=== PATIENT | female | born 1990 | race African-American/Black ===

== ENCOUNTER 2019-11-03 17:28 | Emergency (ER) | payer SELFPAY ==
[2019-11-03] MEDS ORDERED: Metoclopramide HCl 10 MG/2 ML VIAL ONE (18:32)
[2019-11-03] MEDS ORDERED: diphenhydrAMINE 50 MG/ML VIAL ONE (18:32)
[2019-11-03] MEDS ORDERED: Acetaminophen 500 MG TAB ONE (18:32)
[2019-11-03] MEDS ORDERED: Ketorolac Tromethamine 30 MG/ML VIAL ONE (19:36)
== END 2019-11-03 20:13 | disposition home or self-care (01) ==
LOC: ERS 17:28
DX: R51 Headache (principal); Z87.891 Personal history of nicotine dependence
CPT/HCPCS: 96365; 96375; J1200; J1885; J2765

== ENCOUNTER 2021-11-28 14:36 | Inpatient (IN) | payer SELFPAY ==
[2021-11-28] MEDS ORDERED: Neomycin-Polymyxin 1 ML AMP ONE ×2 (16:21→17:54)
[2021-11-28] MEDS ORDERED: Bacitracin Zinc Ointment 30 gm TUBE ONE (16:21)
[2021-11-28] MEDS ORDERED: Bupivacaine 0.25% HCL 30 ML VIAL ONE (16:21)
[2021-11-28] MEDS ORDERED: Lidocaine 1% w/Epinephrine 1:100K 20 ML VIAL ONE (16:21)
[2021-11-28] MEDS ORDERED: CEFAZOLIN 2 GM VIAL ONE (16:29)
[2021-11-28] MEDS ORDERED: Sodium Chloride 0.9% 100 ML ONE (16:29)
[2021-11-28] MEDS ORDERED: fentaNYL Citrate/PF 100 MCG/2 ML SYRINGE ONE ×2 (17:02→18:12)
[2021-11-28] MEDS ORDERED: Midazolam HCl 2 mg/2 ml Vial ONE (17:02)
[2021-11-28] MEDS ORDERED: Famotidine/PF 20 mg/2ml Vial ONE (17:03)
[2021-11-28] MEDS ORDERED: HYDROmorphone 0.5 MG/0.5 ML SYRINGE ONE (17:03)
[2021-11-28] MEDS ORDERED: Dexamethasone 20 MG/5 ML VIAL ONE (17:19)
[2021-11-28] MEDS ORDERED: Lidocaine 1% PF 5 ML VIAL ONE (17:19)
[2021-11-28] MEDS ORDERED: Ondansetron PF 4 MG/2 ML Vial ONE (17:19)
[2021-11-28] MEDS ORDERED: PROPOFOL 200 MG/20 ML VIAL ONE (17:19)
[2021-11-28] MEDS ORDERED: Promethazine HCl 25 MG/ML VIAL IM PRN ×2 (17:28→19:06)
[2021-11-28] MEDS ORDERED: Ondansetron PF 4 MG/2 ML Vial IVP PRN (17:28)
[2021-11-28] MEDS ORDERED: traMADol HCl 50 MG TAB PO PRN (17:28)
[2021-11-28] MEDS ORDERED: Fentanyl 100 MCG/2 ML VIAL SLOW IVP PRN (17:28)
[2021-11-28] MEDS ORDERED: Milk Of Magnesia 30 ML UDCUP PO PRN (17:28)
[2021-11-28] MEDS ORDERED: Acetaminophen 325 MG TAB PO PRN (17:28)
[2021-11-28] MEDS ORDERED: Morphine 4 MG/ML VIAL SLOW IVP PRN (17:28)
[2021-11-28] MEDS ORDERED: Communication Order-Pharmacy FS SCH (17:30)
[2021-11-28] MEDS ORDERED: TETANUS AND DIPHTHERIA TOX/PF 0.5 ML DISP.SYRIN IM SCH (17:30)
[2021-11-28] MEDS ORDERED: Meperidine HCl/PF 25 MG/ML VIAL IM PRN (17:32)
[2021-11-28] MEDS ORDERED: Meperidine HCl/PF 25 MG/ML VIAL SLOW IVP PRN (19:06)
[2021-11-28] MEDS ORDERED: Promethazine HCl 25 MG/ML VIAL IVPB PRN (19:06)
[2021-11-28] MEDS ORDERED: HYDROmorphone 2 MG/ML VIAL SLOW IVP PRN (19:06)
[2021-11-28] MEDS ORDERED: Morphine Sulfate 2 MG/ML SYRINGE SLOW IVP PRN (19:06)
[2021-11-28] MEDS ORDERED: Ketorolac Tromethamine 30 MG/ML VIAL IVP PRN (19:06)
[2021-11-28] MEDS ORDERED: Ondansetron HCl/PF 4 MG/2 ML Vial IVP PRN (19:06)
[2021-11-28] MEDS: Sodium Chloride 0.9% 1,000 ML IV SCH (20:20)
[2021-11-28 20:53] VITALS: BMI 30.9
[2021-11-28] MEDS: Aspirin 81 mg Enteric Coated Tablet PO SCH (21:17)
[2021-11-28] MEDS: Ketorolac Tromethamine 30 MG/ML VIAL IVP PRN (21:17)
[2021-11-28] MEDS: VANCOMYCIN 1.25 GM/250 ML BAG 1.25 GM in Premix Bag 1 BAG IVPB SCH (21:20)
[2021-11-28] MEDS: HYDROcodone/Acetaminophen 5/325 mg Tablet PO PRN (23:54)
[2021-11-29] MEDS: Sodium Chloride 0.9% 1,000 ML IV SCH ×2 (03:30→13:49)
[2021-11-29 05:46] LABS: Anion Gap 13 mmol/L (10-20); BUN (Urea Nitrogen) 12 mg/dL (7.0-18.7); Calc. Creatinine Clearance 109 mL/min (70-130); Calcium 9.6 mg/dL (7.8-10.44); Carbon Dioxide 25 mmol/L (22-29); Chloride 103 mmol/L (98-107); Estimated GFR 84; Glucose 180 mg/dL (70-105); Potassium 4.5 mmol/L (3.5-5.1); Sodium 136 mmol/L (136-145)
[2021-11-29] MEDS: HYDROcodone/Acetaminophen 5/325 mg Tablet PO PRN ×2 (08:39→17:15)
[2021-11-29] MEDS: Aspirin 81 mg Enteric Coated Tablet PO SCH (08:39)
[2021-11-29] MEDS: VANCOMYCIN 1.25 GM/250 ML BAG 1.25 GM in Premix Bag 1 BAG IVPB SCH (08:43)
[2021-11-29] MEDS: Ketorolac Tromethamine 30 MG/ML VIAL IVP PRN (08:45)
[2021-11-29 19:50] VITALS: BP 129/79; TEMP 98.4
== END 2021-11-29 19:26 | disposition home or self-care (01) | DRG 514 ==
LOC: SDC 14:36 → SURG A 17:31 → OBSVTOIN 11-29 16:54
PROVIDERS: ADMIT Orthopaedic Surgery Hand Surgery; ATTEND Orthopaedic Surgery Hand Surgery
PROC: 0PSV04Z Reposition Left Finger Phalanx with Internal Fixation Device, Open Approach (ICD-10-PCS; principal; 2021-11-29)
PROC: 01Q60ZZ Repair Radial Nerve, Open Approach (ICD-10-PCS; 2021-11-29)
PROC: 0HQQXZZ Repair Finger Nail, External Approach (ICD-10-PCS; 2021-11-29)
PROC: 0PCV0ZZ Extirpation of Matter from Left Finger Phalanx, Open Approach (ICD-10-PCS; 2021-11-29)
DX: S62.633A Displaced fracture of distal phalanx of left middle finger, initial encounter for closed fracture (principal); Z20.822 Contact with and (suspected) exposure to COVID-19; X58.XXXA Exposure to other specified factors, initial encounter; Z79.899 Other long term (current) drug therapy
CPT/HCPCS: 36415; 76000; 80048; 96365; 96375; 96376; G0378; J0690; J1100; J1170; J1885; J2250; J2405; J2704; J3370; J3490; J7050; S0020; S0028